=== PATIENT | female | born 1960 | race Caucasian/White ===

== ENCOUNTER → 2017-10-28 10:35 | Outpatient (CLI) | payer OTHER, SELFPAY | LOC: MTLAB 10:39 → MTRAD 10:42 | PROVIDERS: Family Provider Family Medicine; PCP Family Medicine; Visit Provider Family Medicine | DX: M25.561 Pain in right knee (principal) | CPT/HCPCS: 73562 ==

== ENCOUNTER → 2017-11-24 08:29 | Outpatient (CLI) | payer OTHER, SELFPAY ==
--- NOTE | 2017-11-24 08:31 | BI_ITS ---
MAMMOGRAPHY - BILATERAL SCREENING REASON FOR EXAM: Female, 57 years old. Routine annual screening examination. PERTINENT HISTORY: Non-contributory. TECHNIQUE: Digital bilateral breast nilay (3D mammographic acquisition) in the CC and MLO projections. 2-D mediolateral oblique (MLO) and craniocaudad (CC) views of both breasts were obtained. CAD: Full Field Digital Mammography with Computer Added Detection was performed. COMPARISON: Comparison is made with prior study dated November 08, 2016 and October 31, 2015. FINDINGS: Breast Composition: The breasts are almost entirely fatty. There are no dominant masses or suspicious calcifications. Stable small benign-appearing bilateral axillary lymph nodes. No other significant abnormalities are identified. There has been no significant change since the prior study. BI/SCREENING MAMM (CAD), BILAT IMPRESSION: Stable bilateral screening mammogram. Yearly follow-up mammogram recommended. (A) ASSESSMENT CATEGORY: BIRADS Category 2: Benign. A letter regarding these results will be sent to the patient by the facility within 30 days. Approximately 10% of breast cancers are not detected by mammography. A normal mammogram should not delay biopsy of a clinically suspicious abnormality. [id number] Electronically Signed: Juni Mahmood MD at 10:13 EDT Tel [phone], Service support ,
== END ==
PROVIDERS: Family Provider Family Medicine; PCP Family Medicine; Visit Provider Family Medicine
DX: Z01.419 Encounter for gynecological examination (general) (routine) without abnormal findings (principal); Z12.31 Encounter for screening mammogram for malignant neoplasm of breast
CPT/HCPCS: 77063; 77067

== ENCOUNTER 2017-12-04 08:30 | Outpatient (RCR) | payer OTHER, SELFPAY ==
--- NOTE | 2017-11-07 10:14 | HP.PTEVAL_ITS ---
Patient's Visit Information RAZIA JENKINS is a 57 year old F referred to Physical Therapy by Joan Holt MD with a diagnosis of Right Knee Pain. Date of Evaluation: 11/07/17 Physical Therapist: Madiha Vazquez - Visit Plan Frequency: 2x /Week Duration: 4 Weeks Plan: Focus on bilat hip and knee strength, hamstring and hip external rotators flexibility. Patellofemoral compression joint mobs. Modality of US as needed. - Subjective Subjective: Patient presents with c/o burning pain medial joint line R knee. During physical talked to Dr. Joan Vale. Radiograph showing arthitis. No hx of previous injury to LE or hx of arthitis. No back pain. Pain began Friday morning when woke up. Pain is local and described as superficial. No numbness/ tingling currently; sx in past down leg and toes but did not address with physician. After prolonged sit to stand relieved pressure. When stand up feel little pop in lumbar region. Relief with compression; pt. has not tried ice, took Ibuprofen once unable to determine if provided relief. Biofreeze did not provide relief. Sleeps starting on R side, rolls supine when pain, then roll to L side. Pt. reports no pain supine with knees flexed. Sleep with pillow between knees. Sometimes pain wakes up or to use restroom. Walking is okay but doesn?t bother. Activity includes walking children, caring for 80 y.o immobile mother, walk 3x week half mile to a mile. If couple weeks without walking, able to walk a block. Pt. reports feeling her pain but it does not limit her from these activities. 3 flights of stairs in house; SOB but no trouble getting up; slight increase in pain but ignore. See chiropractor once a month for coccyx, for past few years. No PMH. No daily medications. Pt. goals include finding exercises to maintain mobility and prevent disability. - Objective Posture: rounded shoulders, lumbar slightly flexed posture when seated. Gait: WFL. Observation: no abnormalities on joint line. Palpation: tender to palpate R medial joint line. Flexibility: hamstring mild restriction. Stairs: ascend stairs reciprocally with 1 HR, descend reciprocally no HR; reports feeling knee but not painful. Dermatomes: LE intact bilat. AROM: Lumbar WFL- flex. restricted mildly by hamstring flexibility; stiffness with rotation R. Hip R ER painful. Strength: Hip flex. bilat 4/5, R hip ER 3+/5, 5/5 bilat hip: ext., abd., add., IR. Knee and ankle 5/5. Functional: Toe raise and heel raise WFL. Balance: 8 seconds on R leg - Goals Goal 1:: Patient will be I with HEP and progressions. Goal Time Frame: 4-6 Weeks Goal 2:: Patient will demonstrate increased LE strength 5/5 where deficits. Goal 3:: Patient will report no pain with ER of the right hip. Goal Time Frame: 4-6 Weeks - Rehabilitation Potential Physical Therapy Diagnosis: Patient presents with hypomobility. Mild deficits in strength and flexibility contributing to pain that interferes with patient's function and endurance. Rehabilitation Potential: Good - Anticipated Interventions Patient/Client Instruction: Educate patient on: Benefits of Fitness Program For the Purpose of:: To improve muscle performance and motor function, To increase flexibility/ROM Therapeutic Exercise to Include: Strength training, Endurance training, Agility training, Body mechanics, Flexibilty training, Dynamic Lumbar Stabilization For the Purpose of:: To improve muscle performance and motor function TENS: Yes Cryotherapy (ice pack, ice massage): Yes Thermo therapy (hot pack): Yes Ultrasound (thermal/non thermal): Yes For the Purpose of:: To decrease pain Thank you for the opportunity to evaluate your patient. For Medicare and Medicare HMO plans, please review the plan of care and approve it. It will need to be FAXED BACK to us at [phone] for Medicare purposes. Please let me know if there are questions or concerns regarding this plan of care. Physician Signature: Date:
--- NOTE | 2017-12-04 11:01 | HP.PTDCSUM ---
HP - PT D/C Summary It has been my pleasure to treat RAZIA JENKINS under orders from Joan Holt MD, for the diagnosis of Right Knee Pain for a total of 9 visit(s). Discharge Date: Please see the following information for a summary of their discharge status. - Subjective Subjective: Pt. thinks knee has gotten better. Able to sleep last few nights, only one flare up in knee. Able to do laundry in basement steep stairs can bring up basket of clothes. No pain with stairs. Can stand to wash dishes and cook. After long period such as an hour will be tired but not due to knee. No problem entering/exit van. Currently no pain in knee. Within last week, worst 3/10. Couple flare ups; changing direction quickly is what flares up. Did go on walk last night, stepped in pot hole and buckled caught self. As kept walking, felt better. Has not been catching as much. When drying hair and feet off ground, stinging pain that would go away; not yesterday. Doing exercises at home has been helping. No numbness/tingling. No f/u with doctor. Able to do everything wanted but running. Will work on jogging. Noticed can squat and get self back up. Confident that can do exercises at home and progress. - Overall Improvement % Improvement: 98 - Objective Objective/Function: Gait: WFL. Posture: rounded shoulders. Stairs: ascend/descend reciprocally with no HR, good form and pace. AROM: hip and knee WFL. Heel and toe raise no support. Strength: hip, knee, ankle 5/5 throughout; slight pain with resisted hip ER on medial knee. SL balance: 12 seconds on R, 14 seconds on L; no UE support. Palpation: no joint line tenderness. Very mild swelling medial knee from buckling last night. Special tests: Jacek (-) Thessaly (-) - Goals Goal 1:: Patient will be I with HEP and progressions. Goal Progress: Goal Met Goal 2:: Patient will demonstrate increased LE strength 5/5 where deficits. Goal Progress: Goal Met Goal 3:: Patient will report no pain with ER of the right hip. Goal Progress: Goal Met - Plan Plan: D/C to independent HEP. - D/C Information If there are questions or concerns regarding this patient's physical therapy, please feel free to call me at [phone]. Thank you for the referral of this patient. Sincerely, Madiha Vazquez
== END 2017-12-04 11:07 | disposition home or self-care (01) ==
LOC: PT 08:30
PROVIDERS: Family Provider Family Medicine; PCP Family Medicine; Visit Provider Family Medicine
DX: M25.561 Pain in right knee (principal)
CPT/HCPCS: 97110; 97161; 97164

== ENCOUNTER → 2018-11-30 | Outpatient (CLI) | payer OTHER, SELFPAY ==
--- NOTE | 2018-11-30 08:05 | BI_ITS ---
MAMMOGRAPHY - BILATERAL SCREENING 3-D TOMOSYNTHESIS REASON FOR EXAM: Female, 58 years old. Screening PERTINENT HISTORY: No significant family history. BILATERAL DIGITAL MAMMOGRAM WITH TOMOSYNTHESIS: Mediolateraloblique and craniocaudal views demonstrate no evidence of dominant parenchymal masses. No cluster of microcalcification or architectural distortion is seen. No evidence of skin thickening. No significant change since 11/24/2017. Breast Density: There are scattered areas of fibroglandular density. CAD was used to assist in final assessment. IMPRESSION: NORMAL MAMMOGRAM BILATERALLY. FINAL ASSESSMENT: BIRAD 1 (NEGATIVE) YEARLY MAMMOGRAM RECOMMENDED Approximately 10% of breast cancers are not detected by mammography. A normal mammogram should not delay biopsy of a clinically suspicious abnormality. Electronically Signed: Jhoan Ojeda, at 14:11 EDT Tel , Service support , BI/SCREEN MAMM (CAD) W/CASEY LEVINE
== END | disposition home or self-care (01) ==
LOC: OPBI 07:56
PROVIDERS: Family Provider Family Medicine; PCP Family Medicine; Referring Provider Family Medicine; Visit Provider Family Medicine
DX: Z12.31 Encounter for screening mammogram for malignant neoplasm of breast (principal)
CPT/HCPCS: 77063; 77067

== ENCOUNTER → 2019-11-12 15:50 | Outpatient (CLI) | payer OTHER, SELFPAY ==
[2019-11-19 22:02] LABS: HPV HC, High Risk Negative (Negative); HPV Reflexed? YES, CHARGE PATIENT
== END ==
PROVIDERS: PCP Family Medicine; Referring Provider Family Medicine; Visit Provider Family Medicine
DX: Z12.4 Encounter for screening for malignant neoplasm of cervix (principal)
CPT/HCPCS: 87624; 88175; G0145

== ENCOUNTER → 2019-12-10 08:19 | Outpatient (CLI) | payer OTHER, SELFPAY ==
--- NOTE | 2019-12-10 08:34 | BI_ITS ---
MAMMOGRAPHY - BILATERAL SCREENING REASON FOR EXAM: Female, 59 years old. Routine annual screening examination. PERTINENT HISTORY: Non-contributory. TECHNIQUE: Digital bilateral breast casey (3D mammographic acquisition) in the CC and MLO projections. 2-D mediolateral oblique (MLO) and craniocaudad (CC) views of both breasts were obtained. CAD: Full Field Digital Mammography with Computer Added Detection was performed. COMPARISON: Comparison is made with prior study dated 11/30/2018 and 11/24/2017. FINDINGS: Breast Composition: There are scattered areas of fibroglandular density. There are no dominant masses or suspicious calcifications. Stable benign-appearing bilateral axillary lymph nodes. No other significant abnormalities are identified. There has been no significant change since the prior study. BI/SCREEN MAMM (CAD) W/CASEY BILAT IMPRESSION: Stable bilateral screening mammogram. Yearly follow-up mammogram recommended. (A) ASSESSMENT CATEGORY: BIRADS Category 2: Benign. A letter regarding these results will be sent to the patient by the facility within 30 days. Approximately 10% of breast cancers are not detected by mammography. A normal mammogram should not delay biopsy of a clinically suspicious abnormality. [id number] Electronically Signed: Juni Mahmood, at 10:16 EDT , Service support ,
== END ==
PROVIDERS: PCP Family Medicine; Referring Provider Family Medicine; Visit Provider Family Medicine
DX: Z12.31 Encounter for screening mammogram for malignant neoplasm of breast (principal)
CPT/HCPCS: 77063; 77067

== ENCOUNTER 2020-03-18 20:31 | Emergency (ER) | payer OTHER, SELFPAY ==
[2020-03-18 20:33] VITALS: BP 139/73; PULSE 56; RESP 16; TEMP 36.2; O2SAT 97; BMI 37.3
--- NOTE | 2020-03-18 20:38 | ED.RN ---
family member is waiting in parking lot. Gabriel [phone]
--- NOTE | 2020-03-18 20:54 | EKG12_ITS ---
Test Reason : ABD PAIN Blood Pressure : / mmHG Vent. Rate : 043 BPM Atrial Rate : 043 BPM P-R Int : 176 ms QRS Dur : 094 ms QT Int : 468 ms P-R-T Axes : 034 010 020 degrees QTc Int : 395 ms Marked sinus bradycardia with sinus arrhythmia Abnormal ECG Confirmed by SAEED ANDERSON, PEPE ([id number]), website/blog editor JOHN DOBBS ([id number]) on 03/21/2020 10:31:39 AM Referred By: ROMMEL Confirmed By:PEPE TIPTON MD
[2020-03-18] MEDS: Ondansetron 4 MG/2 ML Vial IV (21:09)
[2020-03-18] MEDS: 0.9% Normal Saline 1,000 ML 1000 ML IV (21:10)
[2020-03-18] MEDS: Morphine 4 MG/ML Syringe IV (21:10)
--- NOTE | 2020-03-18 21:13 | ED.RN ---
NO OLD EKGS IN MUSE
--- NOTE | 2020-03-18 21:21 | CT_ITS ---
STUDY: CT ABDOMEN AND PELVIS WITHOUT CONTRAST REASON FOR EXAM: Female, 59 years old. MID UPPER ABDOMINAL PAIN WITH VOMITING RADIATION DOSAGE (If Supplied By Facility): CTDIvol = ( 19.27 ) mGy, DLP = ( 996.35 ) mGycm TECHNIQUE: Transaxial images were obtained from the dome of the diaphragm to the symphysis pubis without oral contrast, and without intravenous contrast. Sagittal and coronal images were reconstructed. Individualized dose optimization techniques were used for this CT. COMPARISON: None. FINDINGS: There are bilateral groundglass opacities within the visualized lower lungs. The visualized portions of the heart are within normal limits. The lack of intravenous contrast limits evaluation of solid organs. Within the left hepatic lobe there is a well-circumscribed low-attenuation 4.5 cm round focus which likely reflects a cyst. The gallbladder is distended. There is a gallstone within the gallbladder. Normal spleen. Normal pancreas. Normal bilateral adrenal glands. Normal right kidney. There is a nonobstructing 9 mm left renal calculus. There is a 2.6 cm left renal cyst. Normal visualized stomach. There is feculent appearing material within the ileum. Normal colon. There is non-visualization of the appendix. There is diffuse atherosclerotic calcification of the abdominal aorta, without a demonstrated aneurysm. Normal inferior vena cava. Normal retroperitoneum. Normal urinary bladder. Normal abdominal wall. There are diffuse degenerative changes of the visualized lumbar spine. CT/Abdomen/Pelvis without Cont IMPRESSION: Bilateral groundglass opacities within the visualized lungs a nonspecific finding which may be secondary to multifocal pneumonia, possibly viral. Distended gallbladder associated with cholelithiasis, recommend right upper quadrant ultrasound for further evaluation. Feculent appearing material within the distal small bowel, may be secondary to dysmotility. Nonobstructing 9 mm left renal calculus. Electronically Signed: Davida Mohamud MD at 21:45 EST Tel , Service support ,
[2020-03-18 21:26] LABS: Absolute Lymphocyte Count 1.36 X10^3/uL (0.83-4.51); Absolute Neutrophil Count 5.5 X10^3/uL (2.0-7.7); Basophil# 0.02 X10^3/uL; Basophil% 0.3 % (0-1); Eosinophil# 0.02 X10^3/uL; Eosinophils% 0.3 % (0-5); Hematocrit 40.1 % (37-47); Hemoglobin 13.4 g/dL (12.0-15.0); Lymphocyte # 1.36 X10^3/ul (4.0); Lymphocyte % 18.4 % (19-41); Mean Corp Hgb Conc 33.4 g/dL (32-36); Mean Corpuscular Hgb 31.2 pg (27.0-32.0); Mean Corpuscular Volume 93.5 fL (81-99); Mean Platelet Vol. 9.7 fl (6.2-12.0); Monocyte# 0.42 X10^3/uL; Monocyte% 5.7 % (0-10); NRBC Flagged by Analyzer 0 % (0-5); Neutrophil # 5.54 X10^3/uL (2.7-7.7); Platelet Count 212 K/mm3 (150-450); Red Blood Count 4.29 M/mm3 (4.2-5.4); White Blood Count 7.4 K/mm3 (4.4-11.0)
[2020-03-18 21:40] LABS: AST(SGOT) 17 U/L (15-37); Alanine Aminotransfer ALT/SGPT 20 U/L (13-56); Albumin, Serum 3.8 g/dL (3.2-5.0); Alkaline Phosphatase 85 U/L (45-117); Anion Gap 7 (5-15); BUN 15 mg/dL (7-18); BUN/Creat Ratio 16.4 RATIO (10-20); Calcium,Total 9.3 mg/dL (8.5-10.1); Chloride 106 mmol/L (98-107); Creatinine, Serum 0.91 mg/dL (0.55-1.02); EST Glomerular Filtration Rate 67 mL/min (>60); Est Glom Filt Rate - Afr Amer 81 mL/min (>60); Estimated Creatinine Clearance 64.73 ml/min; Globulin 3.7 g/dL (2.2-4.2); Glucose 137 mg/dL (74-106); Lipase 86 U/L (73-393); Potassium 3.6 mmol/L (3.5-5.1); Protein, Total 7.5 g/dL (6.4-8.2); Sodium Level 138 mmol/L (136-145)
--- NOTE | 2020-03-18 22:19 | ED.DCSUM_ITS ---
- ER Visit Summary Date of Service: 03/18/20 Chief Complaint: Abdominal pain History of Present Illness: The patient is a [address] Holt. She reports that at 3:00 this afternoon she was pushing and strained to have a bowel movement had the abrupt onset of epigastric pain. Is an aching pain is 10 of 10 at worst and a 10 currently. Is worsened by nothing relieved by nothing. She is had nausea and vomited multiple times. No blood or emesis. No diarrhea. No melena medic easier. No dysuria or frequency. Patient denies any history of fatty or spicy food intolerance. Physical Examination: Vitals: Stable. Afebrile. General: Well-nourished and well-developed. Head: Normocephalic atraumatic. Neck: Supple, no lymphadenopathy. No JVD. Nontender. Cardiovascular: Regular rate and rhythm. No murmurs. Respiratory: No respiratory distress. Clear to auscultation bilaterally. Abdominal: Soft, mild epigastric tenderness to palpation, no pain in the right upper quadrant with palpation, negative Ruiz sign, nondistended, normal bowel sounds. No guarding, rebound, or peritoneal signs. Back: Nontender. Extremities: Nontender, no edema. Skin: Normal color, no rash. Neurologic: Alert and oriented ?3. Cranial nerves II through XII are intact. Normal strength and sensation. Psych: Normal affect. Test Results: CBC shows segmented for 75 lymphocytes of 18. Chem-7 shows glucose 137. LFTs are normal. Lipase is normal. EKG shows sinus bradycardia rate of [address] changes. Clinical Impression(s) from Imaging Studies Abdomen/Pelvis CT 03/18/20 21:21 IMPRESSION: Bilateral groundglass opacities within the visualized lungs a nonspecific finding which may be secondary to multifocal pneumonia, possibly viral. Distended gallbladder associated with cholelithiasis, recommend right upper quadrant ultrasound for further evaluation. Feculent appearing material within the distal small bowel, may be secondary to dysmotility. Nonobstructing 9 mm left renal calculus. Electronically Signed: Davida Mohamud MD at 21:45 EST Tel , Service support , Emergency Department Course and Treatment: Patient was given a dose of morphine and Zofran IV. She is resting comfortably. On repeat exam with deep palpation of the right upper quadrant there is no tenderness. She again does not have a Ruiz sign. She tells me that she has a longstanding history of gallstones. Her exam and history tonight are not consistent with cholecystitis and I do not think that the gallstones are what is causing her symptoms. Patient's heart rate here was sinus bradycardia in the 50s. Her blood pressures remained stable. She does not have an old EKG for comparison. However, she had a stress test in 2017 and at that time it is documented that her heart rate was 58 on her EKG. Treatment Plan: Patient will be discharged with prescription for [place], Zofran, and Prilosec. Instructed to follow-up with her primary care physician in 3 to 5 days for another exam. She also given the name of Dr. Crowe to follow-up with for her gallstones. She is instructed to take in a low-fat diet. Return to the emergency department for any worsening symptoms. Disposition: To home in improved and stable condition. Impression: 1. Epigastric pain, uncertain cause. 2. Cholelithiasis. 3. Sinus bradycardia. This note was generated with [employer] dictation software. It may contain incorrect words, spelling, and punctuation that were not noted in review of the chart prior to signing ED Disposition - Plan for ED Patient: Disposition: Home or Assisted Living Instructions: ED Epigastric Pain (Uncertain Cause) Prescriptions: Hydrocodone Bitart/Apap 5-325 [[place] 5MG-325MG] 1 tab PO Q4H PRN PRN 2 Days #10 tab PRN Reason: Pain Prescription Printed Omeprazole [Prilosec] 20 mg PO DAILY #30 cap Prescription Printed Ondansetron [Zofran Odt] 4 mg PO Q8H PRN PRN #10 tab PRN Reason: Nausea Prescription Printed Referrals: Joe Crowe MD [STAFF PHYSICIAN] - 1 Week if not improving Joan Holt MD [Primary Care Provider] - 3-5 Days if not improving
[2020-03-18 22:40] VITALS: RESP 16
[2020-03-18 22:41] VITALS: BP 122/76; PULSE 52; RESP 16; O2SAT 94
== END 2020-03-18 22:41 | disposition home or self-care (01) ==
LOC: ED 21:20
PROVIDERS: Emergency Provider Emergency Medicine; PCP Family Medicine
DX: R10.13 Epigastric pain (principal); K80.20 Calculus of gallbladder without cholecystitis without obstruction; R00.1 Bradycardia, unspecified
CPT/HCPCS: 74176; 80053; 83690; 84484; 85025; 93005; 96361; 96374; 96375; 99284; J7030; A4216; J2405

== ENCOUNTER → 2020-11-13 10:17 | Outpatient (CLI) | payer OTHER, SELFPAY ==
[2020-11-13 12:38] LABS: T4 Total, Thyroxin 9.2 ug/dL (4.8-13.9); Thyroid Stim Hormone (TSH) 0.79 uIU/mL (0.358-3.74)
== END ==
PROVIDERS: PCP Family Medicine; Visit Provider Family Medicine
DX: E01.0 Iodine-deficiency related diffuse (endemic) goiter (principal)
CPT/HCPCS: 36415; 84436; 84443

== ENCOUNTER → 2020-12-13 11:22 | Outpatient (CLI) | payer OTHER, SELFPAY ==
--- NOTE | 2020-12-13 11:27 | BI_ITS ---
MAMMOGRAPHY - BILATERAL SCREENING REASON FOR EXAM: Female, 60 years old. Routine annual screening examination. PERTINENT HISTORY: Non-contributory. TECHNIQUE: Digital bilateral breast casey (3D mammographic acquisition) in the CC and MLO projections. 2-D mediolateral oblique (MLO) and craniocaudad (CC) views of both breasts were obtained. CAD: Full Field Digital Mammography with Computer Added Detection was performed. COMPARISON: Comparison is made with prior study 12/10/2019 11/30/2018. FINDINGS: Breast Composition: There are scattered areas of fibroglandular density. There are no dominant masses or suspicious calcifications. Stable small benign-appearing bilateral axillary lymph nodes. No other significant abnormalities are identified. There has been no significant change since the prior study. BI/SCRN MAMM (CAD)W/CASEY BILAT IMPRESSION: Stable bilateral screening mammogram. Yearly follow-up mammogram recommended. (A) ASSESSMENT CATEGORY: BIRADS Category 1: Negative. A letter regarding these results will be sent to the patient by the facility within 30 days. Approximately 10% of breast cancers are not detected by mammography. A normal mammogram should not delay biopsy of a clinically suspicious abnormality. [id number] Electronically Signed: Juni Mahmood MD at 12:43 EDT , Service support ,
--- NOTE | 2020-12-13 11:27 | US_ITS ---
STUDY: THYROID ULTRASOUND REASON FOR EXAM: Female, 60 years old. Thyroid enlargement TECHNIQUE: Ultrasound evaluation of the thyroid was performed with real-time and static whalen-scale imaging. COMPARISON: None. FINDINGS: RIGHT LOBE: The right lobe of the thyroid gland measures 7.8 x 3.5 x 2.7 cm. There is a heterogeneous echotexture. There are numerous nodules throughout the thyroid lobe, the largest of which is a mixed cystic and solid nodule with regular margins in the mid thyroid and measures 3.4 x 2.4 x 2.8 cm. There is a 1.7 x 1 x 1.5 cm solid nodule with smooth margins in the right thyroid. LEFT LOBE: The left lobe of the thyroid gland measures 4.7 x 1.6 x 1.7 cm. There is a heterogeneous echotexture. There are numerous nodules. Thyroid lobe, the largest of which is a mixed cystic and solid nodule with regular margins in the lower pole and measures 1.4 x 1.1 x 0.7 cm. ISTHMUS: The isthmus measures 5.6 mm. The regional lymph nodes are normal. US/Thyroid IMPRESSION: 1.7 cm TI-RADS 4 nodule in the right thyroid meets criteria for FNA. There are numerous other nodules, the largest of which do not meet criteria for follow-up. Electronically Signed: Dony Calle MD at 2:50 EDT Tel , Service support ,
--- NOTE | 2020-12-13 11:30 | BD_ITS ---
STUDY: DUAL ENERGY X-RAY ABSORPTIOMETRY / DXA REASON FOR EXAM: Female, 60 years old. V76.12ScreeningBONE DENSITY REASON FOR EXAM TECHNIQUE: Bone Mineral Density (BMD) measurements of lumbar spine and bilateral hips were obtained. COMPARISON: None. FINDINGS: Lumbar Spine (L1-L4): g/cm2 (0.879) / T-score (-1.5) / Z-score (0.1) Findings are suggestive of osteopenia with a low fracture risk. Left Femur Total: g/cm2 (0.889) / T-score (-0.4) / Z-score (0.5) Left Femoral Neck: g/cm2 (0.576) / T-score (-2.5) / Z-score (-1.2) Right Femur Total: g/cm2 (0.848) / T-score (-0.8) / Z-score (0.2) Right Femoral Neck: g/cm2 (0.5-7) / T-score (-2.9) / Z-score (-1.6) BD/Dexa Bone Density Study IMPRESSION: The patient is considered osteoporotic as outlined below according to World Ferny Organization (WHO) criteria with a high fracture risk. Reference Information: The T-score is the number of standard deviations above or below the standard which is normal for young adults at their peak bone mineral density. The World Health Organization (WHO) interprets the T-scores as follows: Above -1 Normal bone density Between -1 and -2.5 Osteopenia Equal to / or below -2.5 Osteoporosis As a practical clinical guideline, osteopenia may be graded as follows: Mild -1 through -1.5 Moderate -1.6 through -2.0 Severe -2.1 through -2.4 The Z-score is the number of standard deviations above or below age-matched controls. A Z-score of less than -1.5 would be considered abnormal. References: 1. NIH Osteoporosis and Related Bone Diseases www osteo.org 2. International Society for Clinical Densitometry www iscd.org 3. National Osteoporosis Foundation www nof.org Electronically Signed: Juni Mahmood MD at 12:00 EDT , Service support ,
== END ==
PROVIDERS: PCP Family Medicine; Visit Provider Family Medicine
DX: N95.9 Unspecified menopausal and perimenopausal disorder (principal); E01.0 Iodine-deficiency related diffuse (endemic) goiter; Z12.31 Encounter for screening mammogram for malignant neoplasm of breast
CPT/HCPCS: 76536; 77063; 77067; 77080

== ENCOUNTER → 2020-12-29 16:23 | Outpatient (CLI) | payer OTHER, SELFPAY ==
--- NOTE | 2020-12-29 13:40 | FLU_PTH ---
PATIENT: RAZIA JENKINS LOC: [facility] U#:[id number] AGE/SX: 64/F ROOM: RE12/29/[address]: Dr. Shashank Ryan MD : 1960 BED: DIS: SPEC #: [id number] RECD: 12/29/20 16:06 STATUS: SKIP TIM #: [id number] JENSEN: 12/29/20 13:[address]: Shashank Ryan DEPT: CYTOLOGY RECD BY: Susana Headley ENTERED: 01/01/21 08:12 SP TYPE: Fluid OTHR DR: Dr. Joan Holt MD Tissues: A - Thyroid gland, NOS B - Thyroid gland, NOS C - Thyroid gland, NOS D - Thyroid gland, NOS Procedures: Special Stain Group II Surgery Specimen Level IV Cytospin Fluid HEADER OPERATION: Right thyroid fine needle aspiration x2 PRE-OP DIAGNOSIS: Multiple thyroid nodules TISSUE SUBMITTED: A - Right isthmus nodule fluid, B - Right isthmus nodule x4 slides, C - Right mid thyroid nodule fluid, D - Right mid thyroid nodule x4 slides DIAGNOSIS CYTOLOGY A. Right isthmus nodule fluid, FNA (cytospin and cell block): Consistent with cyst contents. See comment. B. Right isthmus nodule, FNA (smears): Nondiagnostic specimen. See comment. C. Right mid thyroid nodule fluid, FNA (cytospin and cell block): Acellular specimen. D. Right mid thyroid nodule, FNA (smears): Nondiagnostic specimen. See comment. SJ:rg 01/02/2021 COMMENT A. The specimen predominantly consists of a few macrophages. B. Follicular cells are not seen. Rare macrophages are noted. D. Rare follicular cells are noted. Correlation with clinical, radiologic findings and appropriate follow up are necessary. Case has been reviewed in consultation with Dr. Torres who concurs with the above diagnosis. IDC:AM CYTOLOGY STUDY Slides are reviewed. CYTOLOGY GROSS A - Received is 20 ml of red cloudy fluid labeled with the patient's name and and designated per the requisition as right isthmus. Submitted for cytology preparation including cell block. B - Received are four smears labeled with the patient's name and designated per the requisition as right isthmus. Submitted for staining. C - Received is 20 ml of red cloudy fluid labeled with the patient's name and and designated per the requisition as right mid thyroid. Submitted for cytology preparation including cell block. D - Received are four smears labeled with the patient's name and designated per the requisition as right mid thyroid. Submitted for staining. / meera 01/01/2021 TC: Cannot code CPT: 82021 x2, 91477 x2, 79418 x2
== END ==
PROVIDERS: PCP Family Medicine; Referring Provider Surgery; Visit Provider Surgery
DX: E04.1 Nontoxic single thyroid nodule (principal)
CPT/HCPCS: 88108; 88305; 88313

== ENCOUNTER → 2021-02-22 10:15 | Outpatient (CLI) | payer OTHER, SELFPAY ==
--- NOTE | 2021-02-22 10:17 | RAD_ITS ---
STUDY: X-RAY - RIGHT SHOULDER REASON FOR EXAM: Female, 60 years old. Pain after carrying loads of what TECHNIQUE: 4 view(s) of the shoulder. COMPARISON: None. FINDINGS: Normal glenohumeral articulation. There is degenerative arthrosis of the acromioclavicular joint without inferior osseous spur formation. Normal acromion. Normal humeral head and visualized proximal humerus. The soft tissue structures are unremarkable. Normal visualized pulmonary apex. RAD/Shoulder min 2 Views IMPRESSION: No fracture or malalignment. Electronically Signed: Kedar Charles MD ([facility]) at 11:19 EST , Service support ,
== END ==
PROVIDERS: PCP Family Medicine; Referring Provider Family Medicine; Visit Provider Family Medicine
DX: S49.90XA Unspecified injury of shoulder and upper arm, unspecified arm, initial encounter (principal)
CPT/HCPCS: 73030

== ENCOUNTER → 2021-06-16 | Outpatient (CLI) | payer OTHER, SELFPAY ==
--- NOTE | 2021-06-16 11:11 | US_ITS ---
STUDY: THYROID ULTRASOUND REASON FOR EXAM: Female, 60 years old. thyroid nodules TECHNIQUE: Ultrasound evaluation of the thyroid was performed with real-time and static whalen-scale imaging. COMPARISON: 12/13/2020 FINDINGS: RIGHT LOBE: The right lobe of the thyroid gland measures 7.3 x 3.1 x 2.6 cm. There is a heterogeneous echotexture. There are several nodules of the right thyroid lobe with mixed cystic and solid appearance. The largest solid/cystic nodule (TR 3) measures 3.2 x 2.6 x 2.7 cm (not substantially changed). Solid nodule of the right thyroid lobe measures 1.8 x 1.0 x 1.5 cm (not significantly changed). This nodule is solid or almost completely solid, hypoechoic, mwleo-yief-nadi, smoothly marginated and contains no echogenic foci. TI-RADS points: 4. TI-RADS category: TR4. This nodule is moderately suspicious. Recommend FNA evaluation. LEFT LOBE: The left lobe of the thyroid gland measures 4.8 x 1.8 x 1.5 cm. There is a homogeneous echotexture. Dominant nodule (TR 3) of the left thyroid lobe measures up to 1.4 cm, not substantially changed. ISTHMUS: The isthmus measures 9 mm. The regional lymph nodes are normal. US/Thyroid IMPRESSION: 1. Stable multinodular thyroid gland. Most suspicious nodule (right) remain stable. Continue to recommend FNA, if clinically appropriate (and not previously performed). Electronically Signed: eKdar Charles MD ([place]) at 17:39 EDT ,
== END | disposition home or self-care (01) ==
LOC: US 11:10
PROVIDERS: PCP Family Medicine; Referring Provider Surgery; Visit Provider Surgery
DX: E04.2 Nontoxic multinodular goiter (principal)
CPT/HCPCS: 76536

== ENCOUNTER → 2021-11-16 | Outpatient (CLI) | payer OTHER, SELFPAY ==
[2021-11-16 15:25] LABS: T4 Total, Thyroxin 10.2 ug/dL (4.8-13.9); Thyroid Stim Hormone (TSH) 0.67 uIU/mL (0.358-3.74)
== END | disposition home or self-care (01) ==
LOC: MFPLAB 12:11
PROVIDERS: PCP Family Medicine; Referring Provider Family Medicine; Visit Provider Family Medicine
DX: E01.0 Iodine-deficiency related diffuse (endemic) goiter (principal)
CPT/HCPCS: 36415; 84436; 84443

== ENCOUNTER → 2021-12-14 | Outpatient (CLI) | payer OTHER, SELFPAY ==
--- NOTE | 2021-12-14 13:03 | BI_ITS ---
MAMMOGRAPHY - BILATERAL SCREENING 3-D TOMOSYNTHESIS REASON FOR EXAM: Female, 61 years old. Routine screening PERTINENT HISTORY: No significant family history. TECHNIQUE: 2-D mammograms and 3-D Tomosynthesis of the breast (s) were performed. CAD was performed. COMPARISON: 12/13/2020, 12/10/2019 FINDINGS: The breast composition is composed of scattered fibroglandular density. Scattered benign calcifications are seen. No dense spiculated masses or suspicious microcalcifications are identified. No architectural distortion is identified. There is no skin thickening or retraction. There has been no significant change since the prior study. BI/SCRN MAMM (CAD)W/CASEY BILAT IMPRESSION: No mammographic signs of malignancy. Routine yearly mammograms recommended. ASSESSMENT CATEGORY: BIRADS Category 1: Negative. A letter regarding these results will be sent to the patient by the facility within 30 days. FOLLOW UP RECOMMENDATION: Yearly follow up mammogram recommended. (A) Approximately 10% of breast cancers are not detected by mammography. A normal mammogram should not delay biopsy of a clinically suspicious abnormality. Electronically Signed: Con Wheatley MD at 13:57 EDT ,
== END | disposition home or self-care (01) ==
LOC: OPBI 13:02
PROVIDERS: PCP Family Medicine; Visit Provider Family Medicine
DX: Z12.31 Encounter for screening mammogram for malignant neoplasm of breast (principal)
CPT/HCPCS: 77063; 77067

== ENCOUNTER → 2021-12-18 | Outpatient (CLI) | payer OTHER, SELFPAY ==
--- NOTE | 2021-12-18 11:57 | US_ITS ---
STUDY: THYROID ULTRASOUND REASON FOR EXAM: Female, 61 years old. Thyroid nodule follow up TECHNIQUE: Ultrasound evaluation of the thyroid was performed with real-time and static whalen-scale imaging. COMPARISON: None. FINDINGS: RIGHT LOBE: The right lobe of the thyroid gland measures 7.3 x 3.3 x 2.7 cm. There is a heterogeneous echotexture.. Right lobe demonstrates a homogeneous nodule in the lower pole 1.03 x 0.9 x 1.54 cm T rest category 2. Right lobe demonstrates a heterogeneous nodule in the mid to lower pole measuring 3.4 x 2.9 x 2.75 cm which demonstrates inhomogeneous solid components, cystic components and increased vascularity to BIRADS Category 4. LEFT LOBE: The left lobe of the thyroid gland measures 5.0 x 1.8 x 1.7 cm. cm. There is a heterogeneous. Multiple nodules are visualized within the left lobe the largest of which is in the lower pole measuring 1.4 x 1.2 x 1.2 cm with solid and cystic components to RADS category 3. ISTHMUS: The isthmus measures 7.5 mm . The regional lymph nodes are normal. US/Thyroid IMPRESSION: Multinodular goiter as above. Electronically Signed: Berhane Cavazos MD, ELVIS at 14:39 EDT ,
== END | disposition home or self-care (01) ==
PROVIDERS: PCP Family Medicine; Visit Provider Surgery
DX: E04.2 Nontoxic multinodular goiter (principal)
CPT/HCPCS: 76536

== ENCOUNTER → 2022-05-27 | Outpatient (CLI) | payer OTHER, SELFPAY ==
--- NOTE | 2022-05-27 12:23 | US_ITS ---
INDICATION: Multiple thyroid nodules EXAMINATION: Ultrasound US Thyroid (eg thyroid, parathyroid, parotid) TECHNIQUE: Koroma scale and color doppler imaging was performed of the thyroid gland. COMPARISON: 12/18/2021 FINDINGS: RIGHT THYROID LOBE: 6.4 x 3.3 x 3.2 cm. Heterogenous echotexture. [Dominant lower pole nodule with solid and cystic complements measures 3.4 x 2.8 x 2.8 cm. TIRADS Category 4. LEFT THYROID LOBE: 5.1 x 1.6 x 1.6 cm. Heterogenous echotexture. [Dominant nodule in the lower pole with solid and cystic internal components measures 1.3 x 1.1 x 0.7 cm. TIRADS Category 3. ISTHMUS: 8 mm. No thyroid nodules are present. US/Thyroid IMPRESSION: Multinodular goiter. Dominant nodule left lobe is moderately suspicious, TIRADS level 4, recommend fine-needle aspiration due to size criteria. Remaining nodules can be followed annually. Electronically Signed: Jatinder Abraham MD at 20:40 EDT ,
== END | disposition home or self-care (01) ==
PROVIDERS: PCP Family Medicine; Visit Provider Surgery
DX: E04.2 Nontoxic multinodular goiter (principal)
CPT/HCPCS: 76536

== ENCOUNTER → 2022-09-23 | Outpatient (CLI) | payer OTHER, SELFPAY | END | disposition home or self-care (01) | PROVIDERS: PCP Family Medicine; Visit Provider Nurse Practitioner Family | DX: R30.0 Dysuria (principal) | CPT/HCPCS: 87077; 87086; 87088; 87186 ==

== ENCOUNTER 2022-09-26 15:12 | Outpatient (CLI) | payer OTHER, SELFPAY | END 2022-09-26 23:59 | disposition home or self-care (01) | LOC: LABSPEC 15:13 | PROVIDERS: PCP Family Medicine; Referring Provider Family Medicine; Visit Provider Family Medicine | DX: R31.9 Hematuria, unspecified (principal) | CPT/HCPCS: 87077; 87086; 87088; 87186 ==

== ENCOUNTER → 2022-10-02 | Outpatient (CLI) | payer OTHER, SELFPAY ==
--- NOTE | 2022-10-02 08:26 | RAD_ITS ---
EXAMINATION: Air contrast UPPER GI SERIES INDICATION: Female, 61 years gastroesophageal reflux. FLUOROSCOPY TIME (if supplied): (0:48) minutes/seconds. 31.76 mGy. 16 spot images were obtained. TECHNIQUE: Radiographic and fluoroscopic images of the distal esophagus, stomach, and proximal small intestine were obtained following the oral ingestion of barium. COMPARISON: None. FINDINGS: There is no evidence for organomegaly, abnormal calcifications, or abnormal bowel gas pattern. The psoas margins and flank stripes are normal. The visualized osseous structures are normal. The mucosa of the esophagus, stomach and duodenum is normal in appearance without evidence for stricture, ulceration, mass or diverticulum. There is no evidence for hiatal hernia or gastroesophageal reflux. RAD/Upper GI Dual Contrast IMPRESSION: 1. Normal air-contrast upper gastrointestinal study. Electronically Signed: Juni Mahmood MD at 8:53 EDT ,
== END | disposition home or self-care (01) ==
LOC: RAD 08:20
PROVIDERS: PCP Family Medicine; Referring Provider Family Medicine; Visit Provider Family Medicine
DX: R10.9 Unspecified abdominal pain (principal)
CPT/HCPCS: 74246

== ENCOUNTER → 2022-10-07 | Outpatient (CLI) | payer OTHER, SELFPAY ==
[2022-10-07 12:55] LABS: Mucous, Urine 0 SEEN /hpf (<or=2+)
[2022-10-07 15:07] LABS: Color, Urine Yellow (Yellow); Glucose, Dipstick Normal (Normal); Ketone-Dipstick Negative (Negative); Leukocyte Esterase-Dipstick 500 /ul (Negative); Nitrite-Dipstick Negative (Negative); Occult Blood-Urine 150 /ul (Negative); Protein-Dipstick 100 mg/dl (Negative); Urine Bilirubin Dipstick Negative (Negative); Urine Clarity Cloudy (Clear); Urine Urobilinogen Normal (Normal)
[2022-10-07 15:21] LABS: Bacteria 1+ /hpf (None Seen); Red Blood Cells-Urine 10-25 SEEN /hpf (0-5); Squamous Epithelial Cells - UA 0-5 SEEN /hpf (5-10); White Blood Cells 25-50 SEEN /hpf (0-5)
== END | disposition home or self-care (01) ==
PROVIDERS: PCP Family Medicine; Referring Provider Nurse Practitioner Family; Visit Provider Nurse Practitioner Family
DX: R30.0 Dysuria (principal)
CPT/HCPCS: 81001; 87086; 87088

== ENCOUNTER → 2022-11-22 | Outpatient (CLI) | payer OTHER, SELFPAY ==
[2022-11-28 15:08] LABS: HPV APTIMA, High Risk Negative (Negative)
[2022-11-29 16:54] LABS: HPV Reflexed? YES, CHARGE PATIENT
== END | disposition home or self-care (01) ==
LOC: LABSPEC 15:10
PROVIDERS: PCP Family Medicine; Referring Provider Family Medicine; Visit Provider Family Medicine
DX: Z12.4 Encounter for screening for malignant neoplasm of cervix (principal)
CPT/HCPCS: 87624; 88175; G0145

== ENCOUNTER → 2022-12-19 | Outpatient (CLI) | payer OTHER, SELFPAY ==
--- NOTE | 2022-12-19 08:39 | BI_ITS ---
MAMMOGRAPHY - BILATERAL SCREENING REASON FOR EXAM: Female, 62 years old. Routine annual screening examination. PERTINENT HISTORY: Non-contributory. TECHNIQUE: Digital bilateral breast casey (3D mammographic acquisition) in the CC and MLO projections. 2-D mediolateral oblique (MLO) and craniocaudad (CC) views of both breasts were obtained. CAD: Full Field Digital Mammography with Computer Added Detection was performed. COMPARISON: Comparison is made with prior study dated December 14, 2021 and December 13, 2020. FINDINGS: Breast Composition: There are scattered areas of fibroglandular density. There are no dominant masses or suspicious calcifications. No other significant abnormalities are identified. There has been no significant change since the prior study. BI/SCRN MAMM (CAD)W/CASEY BILAT IMPRESSION: Stable bilateral screening mammogram. Yearly follow-up mammogram recommended. (A) ASSESSMENT CATEGORY: BIRADS Category 1: Negative. A letter regarding these results will be sent to the patient by the facility within 30 days. Approximately 10% of breast cancers are not detected by mammography. A normal mammogram should not delay biopsy of a clinically suspicious abnormality. [id number] Electronically Signed: Juni Mahmood MD at 10:30 EDT ,
== END | disposition home or self-care (01) ==
LOC: OPBI 08:38
PROVIDERS: PCP Family Medicine; Referring Provider Family Medicine; Visit Provider Family Medicine
DX: Z12.31 Encounter for screening mammogram for malignant neoplasm of breast (principal)
CPT/HCPCS: 77063; 77067

== ENCOUNTER → 2023-06-02 | Outpatient (CLI) | payer OTHER, SELFPAY | END | disposition home or self-care (01) | PROVIDERS: PCP Family Medicine; Visit Provider Physician Assistant Medical | DX: N39.0 Urinary tract infection, site not specified (principal) | CPT/HCPCS: 87077; 87086; 87088; 87186 ==

== ENCOUNTER → 2023-06-16 | Outpatient (CLI) | payer OTHER, SELFPAY ==
--- NOTE | 2023-06-16 11:51 | US_ITS ---
STUDY: THYROID ULTRASOUND REASON FOR EXAM: Female, 62 years old. Yearly follow up, nodule TECHNIQUE: Ultrasound evaluation of the thyroid was performed with real-time and static whalen-scale imaging. COMPARISON: Comparison is made with prior study dated May 27, 2022. FINDINGS: RIGHT LOBE: The right lobe of the thyroid gland is enlarged and measures 6.2 cm x 3 cm x 3.5 cm. There is a heterogeneous echotexture. Several hypoechoic solid and cystic nodules are seen. The dominant nodule measures 3.4 sono by 2.7 cm x 2.6 cm. This is in the mid pole. This is unchanged. TI-RADS Category 4. LEFT LOBE: The left lobe of the thyroid gland measures 4.3 cm x 1.7 cm x 1.8 cm. There is a heterogeneous echotexture. Once again, several solid/cystic nodules are seen. The largest measures 1.1 cm x 1.1 cm x 0.7 cm in the upper pole. This is unchanged. TI-RADS Category 3 Category 3 ISTHMUS: The isthmus measures 7 mm. The regional lymph nodes are normal. US/Thyroid IMPRESSION: Stable examination. Electronically Signed: Juni Mahmood MD at 15:10 EDT ,
== END | disposition home or self-care (01) ==
PROVIDERS: PCP Family Medicine; Referring Provider Surgery; Visit Provider Surgery
DX: E04.1 Nontoxic single thyroid nodule (principal)
CPT/HCPCS: 76536

== ENCOUNTER → 2023-06-20 | Outpatient (CLI) | payer OTHER, SELFPAY ==
[2023-06-20 16:56] LABS: Free T3 2.9 pg/mL (2.18-3.98); T4 Total, Thyroxin 9.3 ug/dL (4.8-13.9); Thyroid Stim Hormone (TSH) 0.92 uIU/mL (0.358-3.74)
== END | disposition home or self-care (01) ==
LOC: LAB 15:18
PROVIDERS: PCP Family Medicine; Referring Provider Surgery; Visit Provider Surgery
DX: E04.2 Nontoxic multinodular goiter (principal)
CPT/HCPCS: 36415; 84436; 84443; 84481

== ENCOUNTER → 2023-10-19 | Outpatient (CLI) | payer OTHER, SELFPAY | END | disposition home or self-care (01) | LOC: LABSPEC 13:39 | PROVIDERS: PCP Family Medicine; Visit Provider Nurse Practitioner Family | DX: N39.0 Urinary tract infection, site not specified (principal) | CPT/HCPCS: 87086 ==

== ENCOUNTER → 2024-06-01 | Outpatient (CLI) | payer OTHER, SELFPAY ==
--- NOTE | 2024-06-01 16:12 | US_ITS ---
PROCEDURE: THYROID 06/01/2024 REASON FOR EXAM: YEARLY thyroid ultrasound for thyroid nodule. TECHNIQUE: Thyroid ultrasound COMPARISON: None. FINDINGS: Right thyroid lobe measures 6.1 x 3.4 x 3.1 cm. Left thyroid lobe measures 4.9 x 1.6 x 1.9 cm. Isthmus thickness is0.8 cm. Thyroid Size: Normal Background Echotexture: Heterogeneous Thyroid Nodules: - mid right thyroid lobe measuring 1.5 x 1.2 x 0.8 cm, solid, hypoechoic, wider than tall, smooth margins without calcification. TR-4. - no suspicious left thyroid nodules. US/Thyroid IMPRESSION: Right TR-4thyroid nodule, which meets ACR TI-RADS criteria for fine-needle aspi ration (if not recently performed). Reading Location: [id number]
== END | disposition home or self-care (01) ==
PROVIDERS: PCP Family Medicine; Referring Provider Surgery; Visit Provider Surgery
DX: E04.1 Nontoxic single thyroid nodule (principal)
CPT/HCPCS: 76536

== ENCOUNTER 2024-06-16 15:15 | Outpatient (CLI) | payer OTHER, SELFPAY ==
--- NOTE | 2024-06-16 | ASPIG_PTH ---
PATIENT: RAZIA JENKINS LOC: [facility] U#:[id number] AGE/SX: 63/F ROOM: RE06/16/[address]: Dr. Shashank Ryan MD : 1960 BED: DIS: 06/16/2024 SPEC #: [id number] RECD: 06/16/24 15:16 STATUS: SKIP REBal #: [id number] JENSEN: 06/16/24 00:[address]: Shashank Ryan DEPT: CYTOLOGY RECD BY: Cole Gongora ENTERED: 06/16/24 15:16 SP TYPE: ASP OUT OTHR DR: Dr. Joan Holt MD Tissues: A - Thyroid gland, NOS Procedures: FNA Specimen Adequacy Special Stain Group II Surgery Specimen Level IV Cytospin Fluid Cytology Other HEADER OPERATION: Fine needle aspiration of right thyroid nodule PRE-OP DIAGNOSIS: Right thyroid nodule TISSUE SUBMITTED: A- Right mid thyroid nodule DIAGNOSIS CYTOLOGY A Right mid thyroid nodule, FNA: * Nondiagnostic due to insufficient cellular material Preliminary studies/adequacy: 1. Blood 2. Few cells 5. Blood By Dr. Dailey 06/16/24 CYTOLOGY STUDY Slides are reviewed. CYTOLOGY GROSS A. Received is 3 DQ and 3 PAPS labeled with the patient's name and and designated per the requisition as Right mid thyroid nodule. Submitted for cytology. Mr 06/16/2024 CPT: 88239
== END 2024-06-16 23:59 | disposition home or self-care (01) ==
LOC: LABSPEC 15:16
PROVIDERS: PCP Family Medicine; Visit Provider Surgery
DX: E04.1 Nontoxic single thyroid nodule (principal)
CPT/HCPCS: 88108; 88161; 88172; 88305; 88313